=== PATIENT | male | born 1985 | race Two or more races ===

== ENCOUNTER 2020-05-22 11:24 | Emergency (ER) | payer SELFPAY ==
[~2020-05-22] VITALS: Ht 185.4 cm; Wt 95.3 kg
[2020-05-22 12:30] VITALS: BP 124/69
== END 2020-05-22 13:08 | disposition home or self-care (01) ==
LOC: ER 11:24
DX: R06.02 Shortness of breath (principal); Z20.822 Contact with and (suspected) exposure to COVID-19
CPT/HCPCS: 36415; 71045; 87426; 99284; C9803; U0003

== ENCOUNTER 2023-11-29 11:54 | Emergency (ER) | payer MEDICAID, OTHER ==
[~2023-11-29] VITALS: Ht 152.4 cm; Wt 96.8 kg
[~2023-11-29 11:54] MED LIST: HYDR-3682 PO; TRIO1TP EX
[2023-11-29 13:11] VITALS: BP 122/79; PULSE 81; RESP 19; TEMP 98.1; O2SAT 97
[2023-11-29] MEDS: DexAMETHasone SOD PHOS 10MG/1ML VIAL INJ IM ONE (13:47)
[2023-11-29] MEDS ORDERED: DOXY-286 PO (13:48)
[2023-11-29] MEDS ORDERED: PRED20TA2 PO (13:48)
[2023-11-29] MEDS ORDERED: FLUO0.054 TOP (13:48)
[2023-11-29] MEDS ORDERED: CLIN1AER5 EX (13:48)
== END 2023-11-29 13:53 | disposition home or self-care (01) ==
LOC: ER 11:56
DX: L30.9 Dermatitis, unspecified (principal); F10.90 Alcohol use, unspecified, uncomplicated; Z85.9 Personal history of malignant neoplasm, unspecified; Z88.0 Allergy status to penicillin; Z79.899 Other long term (current) drug therapy; Y90.0 Blood alcohol level of less than 20 mg/100 ml
CPT/HCPCS: 96372; 99283; J1100